=== PATIENT | male | born 1950 | race Asian ===

== ENCOUNTER → 2020-07-03 | Outpatient (CLI) | payer MEDICARE ==
[~2020-07-03] MED LIST: METF-960 PO; SIMV5TAB59 PO
[2020-07-03 09:39] VITALS: BP 187/68
== END | disposition home or self-care (01) ==
LOC: CARDMN 08:27
PROVIDERS: ATTEND Internal Medicine Cardiovascular Disease
DX: I25.10 Atherosclerotic heart disease of native coronary artery without angina pectoris (principal)
CPT/HCPCS: 93017